=== PATIENT | female | born 1970 | race Caucasian/White ===

== ENCOUNTER 2021-12-19 05:45 | Emergency (ER) | payer MEDICAID, OTHER ==
[~2021-12-19] VITALS: Ht 165.1 cm; Wt 100.0 kg
[~2021-12-19 05:45] MED LIST: CLIN-97 PO
[2021-12-19 05:51] VITALS: BP 149/83
== END 2021-12-19 07:15 | disposition left against medical advice (07) ==
LOC: ER 05:45
DX: R10.30 Lower abdominal pain, unspecified (principal); Z53.21 Procedure and treatment not carried out due to patient leaving prior to being seen by health care provider

== ENCOUNTER 2025-04-29 15:52 | Outpatient (CLI) | payer OTHER ==
[~2025-04-29 15:52] MED LIST changes: +CLIN-224 PO; -CLIN-97 PO
--- NOTE | 2025-04-29 17:17 | RADIOLOGY REPORT ---
EXAM: MR MRI LOWER EXTREMITY LEFT INDICATION: SPRAIN OF DELTOID LIGAMENT OF LEFT ANKLE, SUBS ENCNTR TECHNIQUE: Multiplanar and multisequence MR imaging of the left ankle was performed in the absence of gadolinium contrast. COMPARISON: None FINDINGS: [MEDIAL ANKLE]: Intact posterior tibialis, flexor hallucis longus, and flexor digitorum tendons. trace amount of fluid along the flexor digitorum longus tendon sheath in the malleolar segment. Loss of normal fatty striations of the deltoid ligament without significant surrounding edematous appearance however loss of normal contour of the posterior deep deltoid ligament which may reflect underlying tearing (series 5, image 16). Intact spring ligament complex. [LOW LATERAL ANKLE]: Intact anterior talofibular, posterior talofibular, and calcaneofibular ligaments. Intact peroneal brevis and longus tendons without tenosynovitis. [HIGH LATERAL ANKLE]: Intact anterior and posterior inferior tibiofibular ligaments. [ANTERIOR ANKLE]: Intact anterior tibialis, extensor digitorum longus, and extensor hallucis longus tendons. [POSTERIOR ANKLE]: No tibiotalar or subtalar joint effusion. Normal sinus Tarsi. Thickening of the central cord of the plantar fascia. Small plantar calcaneal spur. Trace Achilles insertional enthesophyte. [MIDFOOT]: Normal. [BONES]: No acute fracture, osseous contusion, or aggressive osseous lesion. [MUSCLES]: Normal. [NEUROVASCULAR]: Normal tarsal tunnel [OTHER]: None IMPRESSION: 1. Loss of normal fatty striations of the deltoid ligament without significant surrounding edematous appearance however loss of normal contour of the posterior deep deltoid ligament which may reflect underlying tearing (series 5, image 16). 2. Trace amount of fluid along the flexor digitorum longus tendon sheath in the malleolar segment. Correlate for tenosynovitis. 3. Thickening of the central cord of the plantar fascia. Small plantar calcaneal spur. Correlate for plantar fasciitis. Trace Achilles insertional enthesophyte.
== END 2025-04-29 23:59 | disposition home or self-care (01) ==
LOC: MRI02 15:52
PROVIDERS: ATTEND Podiatrist Foot & Ankle Surgery
DX: S99.922D Unspecified injury of left foot, subsequent encounter (principal); M77.32 Calcaneal spur, left foot; M79.672 Pain in left foot; X58.XXXD Exposure to other specified factors, subsequent encounter
CPT/HCPCS: 73721